=== PATIENT | female | born 1945 | race Caucasian/White ===

== ENCOUNTER 2023-02-05 12:57 | Emergency (ER) | payer OTHER ==
[2023-02-05 13:22] VITALS: BMI 25.4
[2023-02-05] MEDS ORDERED: TETRACAINE 0.5% HCL 0.6ML DROPPER.BOTTLE OS ONE (13:48)
[2023-02-05] MEDS ORDERED: TETRACAINE 0.5% OPHTH SOLN 2 ML BOTTLE OS ONE (13:48)
[2023-02-05] MEDS ORDERED: TETRACAINE 0.5% OPHTH SOLN 2 ML BOTTLE ONE (14:09)
[2023-02-05 15:49] LABS: BASO % 0.6 % (0-2.0); EOS % 1.1 % (0-4.5); HEMOGLOBIN 13.1 GM/dL (10.7-15.3); LYMPH % 23.1 % (8-40); MCH 30.7 pg (25.7-33.7); MCHC 33.5 g/dl (32.0-36.0); MEAN CELL VOLUME 91.4 fl (80-96); MEAN PLT VOLUME 10.5 fl (7.5-11.1); NEUT % 70.2 % (42.8-82.8); PLATELET COUNT 217 10^3/uL (134-434); RBC 4.27 M/mm3 (3.60-5.2); RDW 13.8 % (11.6-15.6); WHITE BLOOD COUNT 6.2 K/mm3 (4.0-10.0)
[2023-02-05 16:00] LABS: INR 1.06 (0.83-1.09); PROTHROMBIN TIME (PATIENT) 12.3 SEC (9.7-13.0)
[2023-02-05 16:03] LABS: ACTIVATED PTT 26.9 SECONDS (25.2-36.5)
[2023-02-05 16:05] LABS: ALBUMIN 3.4 g/dl (3.4-5.0); BLOOD UREA NITROGEN 24.1 mg/dL (7-18); CALCIUM 9.9 mg/dL (8.5-10.1)
[2023-02-05 16:08] LABS: CREATININE 1.2 mg/dL (0.55-1.3)
[2023-02-05 16:09] LABS: BILIRUBIN,TOTAL 0.5 mg/dL (0.2-1)
[2023-02-05 16:10] LABS: TOT PROT 7.6 g/dl (6.4-8.2)
[2023-02-05 16:28] LABS: ERYTHROCYTE SEDIMENTATION RATE 83 mm/hr (0-30)
[2023-02-05 18:50] VITALS: BP 140/89; PULSE 64
[2023-02-05 19:55] VITALS: RESP 17; TEMP 98.9
== END 2023-02-05 21:30 | disposition short-term general hospital (02) ==
LOC: JER 12:57
DX: H53.2 Diplopia (principal); Z20.822 Contact with and (suspected) exposure to COVID-19
CPT/HCPCS: 0241U-QW; 70450-TC; 70496-TC; 70498-TC; 80053; 82962; 83735; 85025; 85610; 85651; 85730; 86618; 86850; 86900; 86901; 87476; 93005; 93010; 99285-25; Q9967